=== PATIENT | male | born 1990 ===

== ENCOUNTER → 2023-04-30 | Outpatient (CLI) | payer OTHER | LOC: MHCPAIN 10:17 | DX: M47.897 Other spondylosis, lumbosacral region (principal); M54.16 Radiculopathy, lumbar region | CPT/HCPCS: G0463 ==

== ENCOUNTER → 2023-05-24 | Outpatient (CLI) | payer OTHER ==
[~2023-05-24] MED LIST: Iohexol 300 - 10 ML VIAL ONE; Lidocaine PF 2% (20 MG/ML) 2 ML VIAL ONE
== END ==
LOC: MHCPAIN 13:01
DX: M54.16 Radiculopathy, lumbar region (principal)
CPT/HCPCS: J1100; Q9967

== ENCOUNTER → 2023-07-23 | Outpatient (CLI) | payer OTHER | LOC: MHCPAIN 14:29 | DX: M54.17 Radiculopathy, lumbosacral region (principal) ==